=== PATIENT | male | born 1935 | race Caucasian/White ===

== ENCOUNTER → 2018-07-06 | Outpatient (REF) | payer MEDICARE, BC ==
[~2018-07-06] MED LIST: COUMADIN1 MG PO
[2018-07-06 17:54] LABS: INTERNATIONAL NORMALIZED RATIO 2.4 RATIO (0.7-1.3); PROTHROMBIN TIME 25.1 SECONDS (9.0-12.5)
== END | disposition home or self-care (01) ==
LOC: LAB 14:06
PROVIDERS: ATTEND Internal Medicine
DX: I48.91 Unspecified atrial fibrillation (principal)